=== PATIENT | male | born 1960 | race American Indian/Alaskan Native ===

== ENCOUNTER 2017-12-30 14:57 | Emergency (ER) | payer OTHER ==
[~2017-12-30] VITALS: Ht 172.7 cm; Wt 97.5 kg
[~2017-12-30 14:57] MED LIST: AMLODIPINE BESY10 MG; ASPIR 8181 MG; CRESTOR10 MG; LISINOPRIL10 MG
[2017-12-30 15:33] LABS: URINE BILIRUBIN NEGATIVE (Negative); URINE BLOOD NEGATIVE (Negative); URINE CLARITY CLEAR; URINE COLOR YELLOW; URINE GLUCOSE-RANDOM NEGATIVE (Negative); URINE KETONES NEGATIVE (Negative); URINE LEUKOCYTES-REFLEX TRACE (Negative); URINE NITRITE-REFLEX NEGATIVE (Negative); URINE PROTEIN NEGATIVE (Negative); URINE SPECIFIC GRAVITY >= 1.030 (1.005-1.030); URINE UROBILINOGEN 0.2 E.U./dl (0.2-1.0)
[2017-12-30 15:41] LABS: SQUAMOUS 0-3 Few /LPF (0-3)
[2017-12-30 15:42] LABS: BACTERIA-REFLEX None Seen /HPF (None Seen); HYALINE CASTS 0-3 Few /LPF (None Seen); MUCUS None Seen strn/LPF (None Seen); URINE RBC 0-2 Rare /HPF (0-2); URINE WBC-REFLEX 0-5 Rare /HPF (0-5)
[2017-12-30 15:43] LABS: CALCIUM OXALATE 0-3 Few /LPF (None Seen)
[2017-12-30 15:55] LABS: ABSOLUTE BASOPHILS 0.1 thou/uL (0.0-0.2); ABSOLUTE EOSINOPHILS 0.4 thou/uL (0.0-0.7); ABSOLUTE LYMPHOCYTES 2.5 thou/uL (0.8-5.3); ABSOLUTE MONOCYTES 0.8 thou/uL (0.0-1.2); ABSOLUTE NEUTROPHILS 8.2 thou/uL (1.6-8.1); BASOPHILS 0.7 %; EOSINOPHILS 3.2 %; HEMATOCRIT 47.2 % (42.0-52.0); HEMOGLOBIN 16.1 gm/dL (14.0-18.0); LYMPHOCYTES 21.1 %; MCH 30.6 pg (26.0-34.0); MCHC 34.1 g/dL (28.0-37.0); MCV 89.7 fL (80.0-100.0); MONOCYTES 6.8 %; MPV 8.9 fl. (7.2-11.1); NUCLEATED RBCS 0 /100WBC; PLATELET COUNT* 268 thou/uL (150-400); POLYS 68.2 %; RBC 5.26 mil/uL (4.50-6.00); RDW-CV 13.5 % (10.5-14.5)
[2017-12-30 16:04] LABS: CALCIUM 8.7 mg/dL (8.5-10.1); CREATININE 1.2 mg/dL (0.6-1.3); POTASSIUM 3.5 mmol/L (3.5-5.1)
[2017-12-30 16:10] LABS: ALBUMIN 3.7 g/dL (3.4-5.0); TOTAL BILIRUBIN 0.3 mg/dL (<0.1-1.0); TOTAL PROTEIN 7.4 g/dL (6.4-8.2)
[2017-12-30] MEDS ORDERED: BENTYL 20 MG TA20 M1 PO (17:13)
[2017-12-30 17:21] VITALS: BP 146/82
--- NOTE | 2017-12-31 13:35 | EKG ---
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[place] : 1960 Requested By: Shelly Berry Order Number: [id number] MD: Tez Greenberg Measurements Intervals [place] Rate: 53 P: 11 [place]: 201 QRS: 14 QRSD: 96 T: 45 QT: 452 QTc: 425 Interpretive Statements Sinus bradycardia Abnormal R-wave progression, early transition Compared to ECG 02/04/2015 21:03:48 No significant changes Electronically Signed On 12-31-2017 13:35:07 CDT by Tez Greenberg [email or web address] <ELECTRONICALLY SIGNED> By: Tez Greenberg MD, [facility] 12/31/17 1335 [id number] 1551 Tez Greenberg MD, FAC /EPI
== END 2017-12-30 17:22 | disposition home or self-care (01) ==
LOC: M.ERS 14:57
PROVIDERS: Nurse Practitioner
DX: R10.32 Left lower quadrant pain (principal); I10 Essential (primary) hypertension; E78.00 Pure hypercholesterolemia, unspecified; F17.200 Nicotine dependence, unspecified, uncomplicated; Z90.89 Acquired absence of other organs

== ENCOUNTER → 2020-10-12 | Outpatient (CLI) | payer OTHER ==
[~2020-10-12] MED LIST changes: +BENTYL 20 MG TA20 M1 PO
== END ==
LOC: M.LAB 08:40
PROVIDERS: ATTEND Orthopaedic Surgery
DX: Z01.812 Encounter for preprocedural laboratory examination (principal); Z20.822 Contact with and (suspected) exposure to COVID-19

== ENCOUNTER → 2020-10-17 | Outpatient (CLI) | payer OTHER ==
[~2020-10-17] MED LIST changes: +HYDROCHLOROTH12.5 M1 PO
== END ==
LOC: M.LAB 05:31
PROVIDERS: ATTEND Anesthesiology
DX: E87.6 Hypokalemia (principal)

== ENCOUNTER 2020-10-19 18:53 | Emergency (ER) | payer OTHER ==
[~2020-10-19] VITALS: Ht 172.7 cm; Wt 104.3 kg
[~2020-10-19 18:53] MED LIST changes: -HYDROCHLOROTH12.5 M1 PO
[2020-10-19] MEDS ORDERED: HYDROCHLOROTH12.5 M1 PO (19:04)
[2020-10-19 19:55] LABS: APTT 26.1 Seconds (25.0-31.3); PROTIME 11.1 Seconds (9.20-11.50)
[2020-10-19 21:30] VITALS: BP 113/63
== END 2020-10-19 21:30 | disposition home or self-care (01) ==
LOC: M.ERS 18:53
PROVIDERS: Personal Emergency Response Attendant
DX: G89.18 Other acute postprocedural pain (principal); M25.561 Pain in right knee; I10 Essential (primary) hypertension; E78.00 Pure hypercholesterolemia, unspecified